=== PATIENT | female | born 1995 | race Caucasian/White ===

== ENCOUNTER 2018-08-16 19:04 | Emergency (ER) | payer MEDICAID ==
[2018-08-16] MEDS: IBUPROFEN 600 MG TAB PO (20:48)
== END 2018-08-16 21:15 | disposition home or self-care (01) ==
LOC: E/R 19:04
DX: S13.4XXA Sprain of ligaments of cervical spine, initial encounter (principal); V49.50XA Passenger injured in collision with unspecified motor vehicles in traffic accident, initial encounter
CPT/HCPCS: 99282; Z7502